=== PATIENT | female | born 1950 | race Two or more races ===

== ENCOUNTER → 2016-10-23 | Outpatient (CLI) | payer MEDICARE, OTHER ==
[~2016-10-23] MED LIST: ACTIGALL300 MG ORAL; COLACE100 MG ORAL; DSS250 MG PO; FAMOTIDINE20 MG PO; FOLIC ACID1 MG PO; LEVOTHYROXINE50 MCG PO; MORPHINE SULFAT15 MG GT; MULTIVITAMINS1 EA14 PO; NYSTATIN100000 UN1 ORAL; TRAMADOL HCL50 MG ORAL; ULTRAM50 MG GT; VITAMIN C500 M1 PO
[2016-10-23 10:07] LABS: MEAN CORPUSCULAR HEMOGLOBIN 29.7 PG (27.0-31.0); MEAN CORPUSCULAR HGB CONC 32.8 G/DL (32.0-36.0); MEAN CORPUSCULAR VOLUME 96 FL (80-99); MEAN PLATELET VOLUME 7.1 FL (6.5-10.1); PLATELET COUNT 232 K/UL (150-450); RED BLOOD COUNT 4.13 M/UL (4.20-5.40); RED CELL DISTRIBUTION WIDTH 12.5 % (11.6-14.8); WHITE BLOOD COUNT 3.2 K/UL (4.8-10.8)
[2016-10-23 10:14] LABS: ALANINE AMINOTRANSFERASE 12 U/L (3-33); ALBUMIN/GLOBULIN RATIO 0.9 (1.0-2.7); AMYLASE 107 U/L (10-110); ANION GAP 14 (5-15); ASPARTATE AMINO TRANSFERASE 29 U/L (5-40); CALCIUM 9.1 mg/dL (8.6-10.2); CARBON DIOXIDE 25 mEQ/L (20-30); CHLORIDE 98 mEQ/L (98-107); CHOLESTEROL 159 mg/dL (< 200); CHOLESTEROL/HDL RATIO 2.2 (3.3-4.4); CREATININE 0.8 mg/dL (0.5-0.9); GLOMERULAR FILTRATION RATE > 60 mL/min (>60); HEMOLYSIS 3; LDL CHOLESTEROL (CALC.) 63 mg/dL (60-99); MAGNESIUM 1.8 mg/dL (1.7-2.5); SODIUM 137 mEQ/L (135-145); TOTAL PROTEIN 7.9 g/dL (6.6-8.7)
[2016-10-26 10:19] LABS: VITAMIN D 25-OH TOTAL 7.5 ng/mL (.)
== END | disposition home or self-care (01) ==
LOC: LAB 09:34
DX: K74.5 Biliary cirrhosis, unspecified (principal); E03.9 Hypothyroidism, unspecified; I10 Essential (primary) hypertension
CPT/HCPCS: 36415; 80053; 80061; 82150; 82306; 82607; 82746; 83690; 83735; 84100; 84436; 84443; 84480; 85025

== ENCOUNTER → 2016-11-28 | Outpatient (CLI) | payer MEDICARE, OTHER ==
[2016-11-28 10:57] VITALS: BP 104/52
--- NOTE | 2016-11-28 11:09 | General Progress Note ---
Assessment/Plan Problem List: (1) Colostomy care ICD Codes: Z43.3 - Colostomy care SNOMED: 635181476 (2) Cirrhosis ICD Codes: K74.60 - Cirrhosis SNOMED: 69057280 (3) Primary biliary cirrhosis ICD Codes: K74.3 - Primary biliary cirrhosis SNOMED: 23820878 (4) Anemia ICD Codes: D64.9 - Anemia SNOMED: 059960884 (5) Constipation ICD Codes: K59.00 - Constipation, unspecified SNOMED: 38452756 (6) Cholelithiasis ICD Codes: K80.20 - Calculus of gallbladder without cholecystitis without obstruction SNOMED: 250367037 (7) Vitamin D deficiency ICD Codes: E55.9 - Vitamin D deficiency SNOMED: 48367644 Assessment/Plan check labs abd us refill ursodiol Subjective ROS Limited/Unobtainable: Yes Allergies: Coded Allergies: No Known Allergies (Unverified , 03/25/15) Subjective no c/o Objective Last 24 Hour Vital Signs Date Time Temp Pulse Resp B/P Pulse Ox O2 Delivery O2 Flow Rate FiO2 11/28/16 10:57 97.5 62 16 104/52 General Appearance: alert EENT: normal ENT inspection Neck: normal alignment Cardiovascular: normal rate Respiratory/Chest: lungs clear Abdomen: normal bowel sounds, non tender, soft Extremities: non-tender TRINA JAMIL Nov 28, 2016 11:09
[2016-11-28 12:22] LABS: BASOPHILS % (AUTO) 1.5 % (0.0-2.0); EOSINOPHILS % (AUTO) 1.4 % (0.0-3.0); LYMPHOCYTES % (AUTO) 20.8 % (20.0-45.0); MEAN CORPUSCULAR HEMOGLOBIN 30.2 PG (27.0-31.0); MEAN CORPUSCULAR HGB CONC 31.9 G/DL (32.0-36.0); MEAN CORPUSCULAR VOLUME 95 FL (80-99); MEAN PLATELET VOLUME 6.9 FL (6.5-10.1); MONOCYTES % (AUTO) 7.6 % (1.0-10.0); NEUTROPHILS % (AUTO) 68.7 % (45.0-75.0); PLATELET COUNT 180 K/UL (150-450); RED BLOOD COUNT 3.82 M/UL (4.20-5.40); RED CELL DISTRIBUTION WIDTH 13.1 % (11.6-14.8); WHITE BLOOD COUNT 3.7 K/UL (4.8-10.8)
[2016-11-28 12:29] LABS: INR 1.4 (0.9-1.1); PROTHROMBIN TIME 14.6 SEC (9.30-11.50)
[2016-11-28 12:34] LABS: ALANINE AMINOTRANSFERASE 21 U/L (3-33); ANION GAP 14 (5-15); ASPARTATE AMINO TRANSFERASE 41 U/L (5-40); CALCIUM 9.1 mg/dL (8.6-10.2); CARBON DIOXIDE 25 mEQ/L (20-30); CHLORIDE 98 mEQ/L (98-107); CREATININE 0.7 mg/dL (0.5-0.9); GLOMERULAR FILTRATION RATE > 60 mL/min (>60); HEMOLYSIS 2; POTASSIUM 5.1 mEQ/L (3.4-4.9); SODIUM 137 mEQ/L (135-145)
[2016-12-01 17:13] LABS: VITAMIN D 25-OH TOTAL 8.9 ng/mL (.)
== END | disposition home or self-care (01) ==
LOC: PAN 10:30
DX: Z43.3 Encounter for attention to colostomy (principal); K74.60 Unspecified cirrhosis of liver; K74.3 Primary biliary cirrhosis; D64.9 Anemia, unspecified; K59.00 Constipation, unspecified; K80.20 Calculus of gallbladder without cholecystitis without obstruction; E55.9 Vitamin D deficiency, unspecified
CPT/HCPCS: 36415; 80053; 82306; 85025; 85610; 85730; G0463; 99211

== ENCOUNTER → 2016-12-04 | Outpatient (CLI) | payer MEDICARE, OTHER ==
--- NOTE | 2016-12-04 15:49 | Diagnostic Imaging Report ---
Indication: PAIN abnormal liver function tests Technique: Bermudez-scale and duplex images of the upper abdomen were obtained Comparison: 03/22/2016 Findings: . Gallbladder again demonstrates gallstones . No wall thickening, nor pericholecystic fluid. Sonographic Larkin's sign is negative. Common bile duct measures 5 mm in diameter. No intrahepatic biliary ductal dilatation. Liver demonstrates patchy increased echogenicity and liver surface nodularity. No focal abnormality. Portal vein and hepatic veins are patent.. Pancreas is unremarkable. Spleen is unremarkable. Left kidney measures 10.2 cm in length. Right kidney measures 10.2 cm length. Both kidneys demonstrate normal echogenicity. There is questionable fullness of bilateral renal collecting systems. There is questionably a small parapelvic cyst in the left lower pole. . Non-aneurysmal abdominal aorta. Impression: Coarsened hepatic echogenicity, consistent with hepatocellular disease. Surface nodularity raises concern for cirrhotic change. Cholelithiasis, also previously described. Negative for dilated ducts Questionable mild bilateral renal collecting system fullness, significance/etiology uncertain Questionable left lower pole parapelvic cyst
== END | disposition home or self-care (01) ==
LOC: ULS 09:22
DX: R94.5 Abnormal results of liver function studies (principal); K80.20 Calculus of gallbladder without cholecystitis without obstruction
CPT/HCPCS: 76700

== ENCOUNTER 2017-11-01 08:50 | Outpatient (CLI) | payer MEDICARE, OTHER ==
[2017-11-01 10:46] LABS: HEMATOCRIT 36.5 % (37.0-47.0); HEMOGLOBIN 10.8 G/DL (12.0-16.0); MEAN CORPUSCULAR VOLUME 81 FL (80-99); PLATELET COUNT 220 K/UL (150-450); RED BLOOD COUNT 4.51 M/UL (4.20-5.40); RED CELL DISTRIBUTION WIDTH 19.7 % (11.6-14.8)
[2017-11-01 11:13] LABS: ALANINE AMINOTRANSFERASE 35 U/L (12-78); ALBUMIN 3.7 G/DL (3.4-5.0); ALBUMIN/GLOBULIN RATIO 0.7 (1.0-2.7); ALKALINE PHOSPHATASE 368 U/L (46-116); ANION GAP 7 mmol/L (5-15); ASPARTATE AMINO TRANSFERASE 47 U/L (15-37); BILIRUBIN,TOTAL 0.7 MG/DL (0.2-1.0); BLOOD UREA NITROGEN 12 mg/dL (7-18); CALCIUM 9.3 MG/DL (8.5-10.1); CARBON DIOXIDE 25 MMOL/L (21-32); CHLORIDE 102 MMOL/L (98-107); CREATININE 0.7 MG/DL (0.55-1.30); POTASSIUM 4.7 MMOL/L (3.5-5.1); SODIUM 134 MMOL/L (136-145)
[2017-11-01 11:30] LABS: % IRON SATURATION 8 % (15-50); IRON 42 ug/dL (50-175); TOTAL IRON BINDING CAPACITY 534 ug/dL (250-450)
== END 2017-11-01 10:50 | disposition home or self-care (01) ==
LOC: LAB 08:50
DX: E03.9 Hypothyroidism, unspecified (principal); R19.7 Diarrhea, unspecified; K74.60 Unspecified cirrhosis of liver
CPT/HCPCS: 36415; 80053; 83036; 83540; 83550; 83735; 84436; 84443; 84480; 85007; 85025

== ENCOUNTER 2018-02-05 17:32 | Outpatient (CLI) | payer MEDICARE, OTHER ==
[2018-02-05 18:12] LABS: BASOPHILS % (AUTO) 0.7 % (0.0-2.0); EOSINOPHILS % (AUTO) 1.9 % (0.0-3.0); HEMATOCRIT 33.5 % (37.0-47.0); HEMOGLOBIN 10.6 G/DL (12.0-16.0); LYMPHOCYTES % (AUTO) 27.6 % (20.0-45.0); MEAN CORPUSCULAR VOLUME 86 FL (80-99); MONOCYTES % (AUTO) 11.2 % (1.0-10.0); NEUTROPHILS % (AUTO) 58.7 % (45.0-75.0); PLATELET COUNT 191 K/UL (150-450); RED CELL DISTRIBUTION WIDTH 15.9 % (11.6-14.8); WHITE BLOOD COUNT 3.8 K/UL (4.8-10.8)
[2018-02-05 18:33] LABS: ALANINE AMINOTRANSFERASE 24 U/L (12-78); ALBUMIN 3.5 G/DL (3.4-5.0); ALBUMIN/GLOBULIN RATIO 0.7 (1.0-2.7); ALKALINE PHOSPHATASE 313 U/L (46-116); ANION GAP 9 mmol/L (5-15); ASPARTATE AMINO TRANSFERASE 42 U/L (15-37); BILIRUBIN,TOTAL 0.6 MG/DL (0.2-1.0); BLOOD UREA NITROGEN 12 mg/dL (7-18); CALCIUM 8.8 MG/DL (8.5-10.1); CARBON DIOXIDE 26 MMOL/L (21-32); CHLORIDE 102 MMOL/L (98-107); CREATININE 0.7 MG/DL (0.55-1.30); POTASSIUM 4.4 MMOL/L (3.5-5.1); SODIUM 137 MMOL/L (136-145)
== END 2018-02-05 19:32 | disposition home or self-care (01) ==
LOC: LAB 17:32
DX: L65.9 Nonscarring hair loss, unspecified (principal)
CPT/HCPCS: 36415; 80053; 85025; 86039

== ENCOUNTER 2018-09-17 10:04 | Outpatient (CLI) | payer MEDICARE, OTHER ==
--- NOTE | 2018-09-17 10:51 | GI Progress Note ---
Assessment/Plan Problems: (1) Primary biliary cirrhosis ICD Codes: K74.3 - Primary biliary cirrhosis SNOMED: 47844533 (2) Anemia ICD Codes: D64.9 - Anemia SNOMED: 303822259 (3) Gastrostomy tube dysfunction ICD Codes: K94.23 - Gastrostomy tube dysfunction SNOMED: 687265319 (4) Constipation ICD Codes: K59.00 - Constipation, unspecified SNOMED: 02779422 (5) Cirrhosis ICD Codes: K74.60 - Cirrhosis SNOMED: 90075399 Status: stable Status Narrative Seen with Dr. Jerome. Assessment/Plan Recommend colonoscopy, however patient refusing Abdominal ultrasound ordered Lab draw ordered Continue ursodiol Return to clinic after the above The patient was seen and examined at bedside and all new and available data was reviewed in the patients chart. I agree with the above findings, impression and plan. (Patient seen earlier today. Signature stamp does not reflect patient encounter time.). - Tera Jerome MD Subjective Gastrointestinal/Abdominal: Reports: no symptoms Subjective Abdominal distention Objective Temperature 98.4 Blood pressure 119/56 Pulse 75 96% room air Weight 83 pounds General Appearance: WD/WN, no apparent distress, alert, thin Cardiovascular: normal rate Respiratory/Chest: normal breath sounds, no respiratory distress Abdominal Exam: normal bowel sounds, non tender, soft Extremities: normal range of motion, non-tender Nico Meyers NP Sep 17, 2018 10:51
[2018-09-17 11:30] VITALS: BP 119/56
== END 2018-09-17 10:34 | disposition home or self-care (01) ==
LOC: PAN 10:04
DX: K74.3 Primary biliary cirrhosis (principal); D64.9 Anemia, unspecified; K94.23 Gastrostomy malfunction; K59.00 Constipation, unspecified
CPT/HCPCS: 99212

== ENCOUNTER 2018-09-23 08:46 | Outpatient (CLI) | payer MEDICARE, OTHER ==
[2018-09-23 10:33] LABS: HEMATOCRIT 37.8 % (37.0-47.0); MEAN CORPUSCULAR VOLUME 96 FL (80-99); PLATELET COUNT 160 K/UL (150-450); RED BLOOD COUNT 3.94 M/UL (4.20-5.40); RED CELL DISTRIBUTION WIDTH 13.4 % (11.6-14.8); WHITE BLOOD COUNT 3.9 K/UL (4.8-10.8)
[2018-09-23 10:45] LABS: ALANINE AMINOTRANSFERASE 32 U/L (12-78); ALBUMIN 3.3 G/DL (3.4-5.0); ALBUMIN/GLOBULIN RATIO 0.8 (1.0-2.7); ALKALINE PHOSPHATASE 298 U/L (46-116); ANION GAP 7 mmol/L (5-15); ASPARTATE AMINO TRANSFERASE 36 U/L (15-37); BILIRUBIN,TOTAL 0.6 MG/DL (0.2-1.0); BLOOD UREA NITROGEN 10 mg/dL (7-18); CALCIUM 9.1 MG/DL (8.5-10.1); CARBON DIOXIDE 26 MMOL/L (21-32); CHLORIDE 106 MMOL/L (98-107); CHOLESTEROL 171 MG/DL (< 200); CREATININE 0.7 MG/DL (0.55-1.30); HDL CHOLESTEROL 81 MG/DL (40-60); POTASSIUM 4.8 MMOL/L (3.5-5.1); SODIUM 139 MMOL/L (136-145); TRIGLYCERIDES 117 MG/DL (30-150)
--- NOTE | 2018-09-23 11:04 | Diagnostic Imaging Report ---
Indication: Abdominal pain. Technique: Multiple plantar grayscale and color Doppler imaging of the abdomen Comparison: 12/04/2016 Findings: Again noted is coarsened liver echotexture with a subtle nodular contour of the liver. No focal hepatic mass lesion is appreciated sonographically. Liver is normal in size with the right lobe measuring approximately 14 cm in length. Imaged hepatic veins are patent. The portal vein is patent with normal direction of flow. There is cholelithiasis and gallbladder sludge. No gallbladder wall thickening or pericholecystic fluid. Sonographic Larkin sign reported as negative. No appreciable intrahepatic biliary ductal dilatation. Common bile duct within normal limits at 5 mm in diameter. Trace ascites is noted adjacent to the left lobe of the liver. The spleen is borderline enlarged measuring 12.2 cm in length. Imaged portions of the pancreatic head unremarkable in appearance. Kidneys are symmetric in size. They demonstrate normal echogenicity. There is no hydronephrosis or sonographically appreciable renal stone. Imaged portions of the abdominal aorta are normal in caliber. They do demonstrate atherosclerotic calcifications however. IMPRESSION: Coarsened hepatic echogenicity and nodular contour of the liver. Findings are concerning for cirrhotic changes. Borderline Splenomegaly. Cholelithiasis. No definite sonographic evidence of an acute cholecystitis. Sonographic Larkin sign reported as negative. Trace ascites adjacent to the left lobe of the liver. Additional findings as above.
== END 2018-09-23 10:46 | disposition home or self-care (01) ==
LOC: ULS 08:46
DX: K74.3 Primary biliary cirrhosis (principal); R16.1 Splenomegaly, not elsewhere classified; K80.20 Calculus of gallbladder without cholecystitis without obstruction; R18.8 Other ascites
CPT/HCPCS: 36415; 76700; 80053; 80061; 82306; 85007; 85025

== ENCOUNTER 2018-10-08 11:29 | Outpatient (CLI) | payer MEDICARE, OTHER ==
[2018-10-08 11:30] VITALS: BP 114/60
--- NOTE | 2018-10-08 16:36 | GI Progress Note ---
Assessment/Plan Problems: (1) Gastrostomy tube dysfunction ICD Codes: K94.23 - Gastrostomy tube dysfunction SNOMED: 693750500 (2) Cirrhosis ICD Codes: K74.60 - Cirrhosis SNOMED: 30028252 (3) Anemia ICD Codes: D64.9 - Anemia SNOMED: 265611372 (4) Vitamin D deficiency ICD Codes: E55.9 - Vitamin D deficiency SNOMED: 66460265 (5) Perforated colon Status: stable Status Narrative Seen with Dr. Jerome. Assessment/Plan EGD/colonoscopy to be scheduled October 16, 2018. - CLD & (Nulytely/Suprep/Movi-Prep) prep instructions given and acknowledged by patient. - NPO @ [place] day prior procedure explained. Will follow with additional recs post procedure. Seen with Dr. Jerome. Thank you for this patient referral. The patient was seen and examined at bedside and all new and available data was reviewed in the patients chart. I agree with the above findings, impression and plan. (Patient seen earlier today. Signature stamp does not reflect patient encounter time.). - Tera Jerome MD Subjective Gastrointestinal/Abdominal: Reports: no symptoms Objective Last 24 Hour Vital Signs Date Time Temp Pulse Resp B/P (MAP) Pulse Ox O2 Delivery O2 Flow Rate FiO2 10/08/18 11:30 97.4 66 16 114/60 98 General Appearance: WD/WN, no apparent distress, alert Cardiovascular: normal rate Respiratory/Chest: normal breath sounds, no respiratory distress Abdominal Exam: normal bowel sounds, non tender, soft Extremities: normal range of motion, non-tender Nico Meyers RV REPAIR TECHNICIAN Oct 08, 2018 16:36
== END 2018-10-08 11:59 | disposition home or self-care (01) ==
LOC: PAN 11:29
DX: K94.23 Gastrostomy malfunction (principal); K74.60 Unspecified cirrhosis of liver; D64.9 Anemia, unspecified; E55.9 Vitamin D deficiency, unspecified; K63.1 Perforation of intestine (nontraumatic)
CPT/HCPCS: G0463

== ENCOUNTER 2018-10-16 08:12 | Day surgery (SDC) | payer MEDICARE, OTHER ==
[~2018-10-16] VITALS: Ht 152.4 cm; Wt 36.3 kg
[2018-10-16] VITALS (11 sets, daily range): BP systolic 114–150; BP diastolic 52–81
--- NOTE | 2018-10-16 06:53 | Anethesia Preoperative Eval ---
Anesthesia Pre-op PMH/ROS General Date of Evaluation: Oct 16, 2018 Time of Evaluation: 06:50 Anesthesiologist: vic ASA Score: ASA 4 Mallampati Score Class I : Soft palate, uvula, fauces, pillars visible Class II: Soft palate, uvula, fauces visible Class III: Soft palate, base of uvula visible Class IV: Only hard plate visible Mallampati Classification: Class II Surgeon: yinka Diagnosis: abdominal pain/colon screening Surgical Procedure: egd/colonoscopy Anesthesia History: none Social History: smoking - nonsmoker Family History: no anesthesia problems Allergies: Coded Allergies: No Known Allergies (Unverified , 03/25/15) Medications: see eMAR Patient NPO?: Yes Past Medical History Gastrointestinal/Genitourinary: Reports: other - g-tube dysfxn, perforated colon, primary biliary cirhosis, abnl lfts, jaundice, cholelithiasis, renal failure Neurologic/Psychiatric: Reports: other - seizure disorder, Endocrine: Reports: hypothyroidism Hematology/Immune: Reports: anemia Anesthesia Pre-op Phys. Exam Physician Exam Last Vital Signs Date Time Temp Pulse Resp B/P (MAP) Pulse Ox O2 Delivery O2 Flow Rate FiO2 10/16/18 08:47 Room Air 10/16/18 08:40 97.8 67 18 150/67 100 Constitutional: NAD Neurologic: CN 2-12 intact Cardiovascular: RRR Respiratory: CTA Gastrointestinal: S/NT/ND Airway Exam Mallampati Score: Class II MO: limited Neck: flexible TMD: 2fb Teeth: missing Anesthesia Pre-op A/P Studies Pre-op Studies: EKG - sinus bradycardia Risk Assessment & Plan Assessment: asa4 Plan: mac Pre-Antibiotics Drug: Yane Laboy MD Oct 16, 2018 06:53
[~2018-10-16 08:12] MED LIST changes: +Atropine Inj 1mg/10ml Syr IV PRN; +DiphenhydrAMINE 50mg/ml Inj IVP PRN; +Midazolam 2mg/2ml Inj IVP PRN; +fentaNYL 100 mcg/2 mL IV PRN
[2018-10-16] MEDS ORDERED: Propofol 200mg/20ml IV ONE (09:00)
[2018-10-16] MEDS ORDERED: Lidocaine 1% MPF 10mg/ml 5ml ONE (09:00)
--- NOTE | 2018-10-16 09:06 | NUR ---
IV WAS INSERTED BY LETITIA HERNANDEZ R.N. AT 0900 AM
--- NOTE | 2018-10-16 09:15 | Pre-Procedure Note/Attestation ---
Pre-Procedure Note/Attestation Complete Prior to Procedure Planned Procedure: not applicable Procedure Narrative: esophagogastroduodenoscopy and colonoscopy Indications for Procedure Pre-Operative Diagnosis: screening colon, GERD Attestation I attest that I discussed the nature of the procedure; its benefits; risks and complications; and alternatives (and the risks and benefits of such alternatives ), prior to the procedure, with the patient (or the patient's legal physician representative). I attest that, if there was a reasonable possibility of needing a blood transfusion, the patient (or the patient's legal physician representative) was given the [facility] standardized written summary, pursuant to the Clem Dequincy Blood Safety Act ([place] Health and Safety Code # 1645, as amended). I attest that I re-evaluated the patient just prior to the surgery and that there has been no change in the patient's H&P, except as documented below: Tera Jerome MD Oct 16, 2018 09:15
--- NOTE | 2018-10-16 09:16 | Short Stay Surgery H&P ---
History of Present Illness History of Present Illness Chief Complaint see recent office note HPI E Pete Bhakta is a 68 year old female who was admitted on for Abdominal Pain, Colon Screening Patient History Allergies: Coded Allergies: No Known Allergies (Unverified , 03/25/15) Medication History Scheduled Levothyroxine Sodium* (Levothyroxine Sodium*), 50 MCG PO DAILY, (Reported) Ursodiol* (Actigall*), 300 MG ORAL TWICE A DAY, (Reported) Physical Exam Vital Signs Last Vital Signs Date Time Temp Pulse Resp B/P (MAP) Pulse Ox O2 Delivery O2 Flow Rate FiO2 10/16/18 08:47 Room Air 10/16/18 08:40 97.8 67 18 150/67 100 Labs Laboratory Tests Test 10/16/18 09:05 White Blood Count Pending Red Blood Count Pending Hemoglobin Pending Hematocrit Pending Mean Corpuscular Volume Pending Mean Corpuscular Hemoglobin Pending Mean Corpuscular Hemoglobin Concent Pending Red Cell Distribution Width Pending Platelet Count Pending Mean Platelet Volume Pending Neutrophils (%) (Auto) Pending Lymphocytes (%) (Auto) Pending Monocytes (%) (Auto) Pending Eosinophils (%) (Auto) Pending Basophils (%) (Auto) Pending Sodium Level Pending Potassium Level Pending Chloride Level Pending Carbon Dioxide Level Pending Blood Urea Nitrogen Pending Creatinine Pending Estimat Glomerular Filtration Rate Pending Glucose Level Pending Calcium Level Pending Plan Attestation Are the patient's medical conditions optimized for surgery? Tera Jerome MD Oct 16, 2018 09:16
[2018-10-16 09:17] LABS: HEMATOCRIT 35.3 % (37.0-47.0); HEMOGLOBIN 11.2 G/DL (12.0-16.0); MEAN CORPUSCULAR VOLUME 94 FL (80-99); PLATELET COUNT 152 K/UL (150-450); RED BLOOD COUNT 3.74 M/UL (4.20-5.40); RED CELL DISTRIBUTION WIDTH 12.5 % (11.6-14.8); WHITE BLOOD COUNT 2.2 K/UL (4.8-10.8)
[2018-10-16 09:44] LABS: ANION GAP 11 mmol/L (5-15); BLOOD UREA NITROGEN 10 mg/dL (7-18); CALCIUM 9.1 MG/DL (8.5-10.1); CARBON DIOXIDE 23 MMOL/L (21-32); CHLORIDE 105 MMOL/L (98-107); CREATININE 0.7 MG/DL (0.55-1.30); POTASSIUM 4.1 MMOL/L (3.5-5.1); SODIUM 139 MMOL/L (136-145)
--- NOTE | 2018-10-16 09:49 | Endoscopy Procedure Note ---
Endoscopy Procedure Note General Indication for Procedure: screening colon, GERD Procedures Performed: EGD, colonoscopy Operative Findings/Diagnosis: gastrtiis, hemorrhoids, diverticulosis Specimen: yes Pt Tolerated Procedure Well: Yes Estimated Blood Loss: none Anesthesia Anesthesiologist: vic Anesthesia: MAC Inserted Devices Implant(s) used?: No Quality Quality of Bowel Preparation: Good Did scope reach the cecum?: Yes Was there any complications?: No GI Core Measures 50 yrs or older w/o bx or poly: No 10yrs. F/U not recommended: Yes If not recommended, why?: Above average risk 10 yrs. F/U needed: Yes 18 years or older w/prev. colo: Yes <3yrs. since last colonoscopy: No Tera Jerome MD Oct 16, 2018 09:49
--- NOTE | 2018-10-16 13:14 | Immediate Post-Op Evaluation ---
Immediate Post-Op Evalulation Immediate Post-Op Evalulation Procedure: egd/colonoscopy/bx Date of Evaluation: Oct 16, 2018 Time of Evaluation: 10:07 IV Fluids: 150ml 0.9ns Blood Products: none Estimated Blood Loss: neglgible Blood Pressure Systolic: 129 Blood Pressure Diastolic: 81 Pulse Rate: 54 Respiratory Rate: 18 O2 Sat by Pulse Oximetry: 100 Temperature (Fahrenheit): 97.8 Pain Score (1-10): 0 Nausea: No Vomiting: No Complications none Patient Status: awake, reacts, patent Hydration Status: adequate Drug: Yane Laboy MD Oct 16, 2018 13:14
--- NOTE | 2018-10-16 13:16 | 48 Hour Post Anesthesia Eval ---
Post Anesthesia Evaluation Procedure: egd/colonoscopy/bx Date of Evaluation: Oct 16, 2018 Time of Evaluation: 10:09 Blood Pressure Systolic: 114 0: 59 Pulse Rate: 52 Respiratory Rate: 18 Temperature (Fahrenheit): 97.8 O2 Sat by Pulse Oximetry: 100 Airway: patent Nausea: No Vomiting: No Pain Intensity: 0 Hydration Status: adequate Cardiopulmonary Status: stable Mental Status/LOC: patient returned to baseline Post-Anesthesia Complications: none Follow-up care needed: N/A Yane Soto MD Oct 16, 2018 13:16
--- NOTE | 2018-10-16 16:48 | Cardiology Report ---
APPROVED REPORT EKG Measurement Heart [id number] Sinus bradycardia Otherwise normal ECG
--- NOTE | 2018-10-16 18:30 | Procedure Note ---
DATE OF PROCEDURE: 10/16/2018 SURGEON: Tera Jerome M.D. PROCEDURE: Upper endoscopy with biopsy and colonoscopy with biopsy. ANESTHESIA: Per Dr. More. INSTRUMENT: Olympus adult flexible upper endoscope and colonoscope. INDICATION: Screening colonoscopy evaluation; history of perforated colon, requiring colostomy in the past; history of ; and need for evaluation for esophageal varices. REASON FOR PROCEDURE: The procedure, risks, benefits, and possible consequences, including hemorrhage, aspiration, perforation and infection, and alternative treatments, were explained to the patient/legal guardian by Dr. Tera Jerome and the patient/legal guardian understood and accepted these risks. PROCEDURE IN DETAIL: After informed consent was obtained and the patient was adequately sedated, Olympus upper endoscope was advanced from the mouth into the second portion of duodenum and retroflexion was performed in the stomach. The patient has atrophic gastritis. There was evidence of stomach was divided into pouches, seems that maybe a paraesophageal hernia, but not severe. No evidence of any esophagitis. No esophageal mass. No gastric mass. Random biopsy from antrum and body was obtained to rule out H. pylori infection. At this time, the upper endoscope was retrieved and the patient was turned over for colonoscopy. First, rectal exam which was normal. Then, the scope was advanced from the rectum into the anastomosis. There was some inflammation ischemic. Biopsy from the anastomosis was obtained. The patient had otherwise normal colonoscopy exam except for diverticulosis. No obvious mass, polyp, or any pathology seen. Retroflexion showed evidence of small nonbleeding internal hemorrhoid. FINDINGS: 1. Atrophic gastritis. 2. Questionable paraesophageal hernia. 3. History of right hemicolectomy with anastomotic ulceration, small. 4. Diverticulosis. 5. Internal hemorrhoids. RECOMMENDATIONS: Follow up biopsy results and treat accordingly. Tera Jerome M.D. DR: MAURICE JOB#: [id number] CC:
== END 2018-10-16 11:40 | disposition home or self-care (01) ==
LOC: GAS 08:12
DX: Z12.11 Encounter for screening for malignant neoplasm of colon (principal); K63.3 Ulcer of intestine; K57.30 Diverticulosis of large intestine without perforation or abscess without bleeding; K64.8 Other hemorrhoids; K63.89 Other specified diseases of intestine; Z90.49 Acquired absence of other specified parts of digestive tract; K29.40 Chronic atrophic gastritis without bleeding; G40.909 Epilepsy, unspecified, not intractable, without status epilepticus; E03.9 Hypothyroidism, unspecified; D64.9 Anemia, unspecified; K74.3 Primary biliary cirrhosis
CPT/HCPCS: 36415; 43239; 45380; 80048; 85007; 85025; 93005; J2704; 94003; 94150

== ENCOUNTER 2018-11-18 13:14 | Outpatient (CLI) | payer MEDICARE, OTHER ==
[~2018-11-18 13:14] MED LIST changes: -Atropine Inj 1mg/10ml Syr IV PRN; -DiphenhydrAMINE 50mg/ml Inj IVP PRN; -Midazolam 2mg/2ml Inj IVP PRN; -fentaNYL 100 mcg/2 mL IV PRN
--- NOTE | 2018-11-18 13:58 | General Progress Note ---
Assessment/Plan Problem List: (1) HP positve gastritis (2) Vitamin D deficiency ICD Codes: E55.9 - Vitamin D deficiency SNOMED: 41525901 (3) Cirrhosis ICD Codes: K74.60 - Cirrhosis SNOMED: 84731708 (4) Anemia ICD Codes: D64.9 - Anemia SNOMED: 386392210 (5) Primary biliary cirrhosis ICD Codes: K74.3 - Primary biliary cirrhosis SNOMED: 33872223 (6) Constipation ICD Codes: K59.00 - Constipation, unspecified SNOMED: 23028248 Assessment/Plan treat for HP cont current meds RTC 3 months for BT Subjective ROS Limited/Unobtainable: Yes Allergies: Coded Allergies: No Known Allergies (Unverified , 03/25/15) Objective General Appearance: alert EENT: normal ENT inspection Neck: supple Cardiovascular: normal rate Respiratory/Chest: decreased breath sounds Abdomen: normal bowel sounds, non tender, soft Extremities: non-tender Tera Jerome MD Nov 18, 2018 13:58
[2018-11-18 15:27] VITALS: BP 106/57
== END 2018-11-18 15:14 | disposition home or self-care (01) ==
LOC: PAN 13:14
DX: K29.70 Gastritis, unspecified, without bleeding (principal); B20 Human immunodeficiency virus [HIV] disease; K74.60 Unspecified cirrhosis of liver; D64.9 Anemia, unspecified; K74.3 Primary biliary cirrhosis; K59.00 Constipation, unspecified

== ENCOUNTER 2019-03-19 12:50 | Outpatient (CLI) | payer MEDICARE, OTHER ==
[2019-03-19] MEDS ORDERED: OMEPRAZOLE20 M2 ORAL (13:20)
--- NOTE | 2019-03-19 13:21 | GI Progress Note ---
Assessment/Plan Problems: (1) Cirrhosis ICD Codes: K74.60 - Cirrhosis SNOMED: 08056328 (2) Primary biliary cirrhosis ICD Codes: K74.3 - Primary biliary cirrhosis SNOMED: 88448093 (3) Anemia ICD Codes: D64.9 - Anemia SNOMED: 779670817 (4) Constipation ICD Codes: K59.00 - Constipation, unspecified SNOMED: 78645005 (5) Colostomy care ICD Codes: Z43.3 - Colostomy care SNOMED: 027438297 (6) Cholelithiasis ICD Codes: K80.20 - Calculus of gallbladder without cholecystitis without obstruction SNOMED: 391376740 (7) Abnormal LFTs ICD Codes: R79.89 - Other specified abnormal findings of blood chemistry SNOMED: 538970548 Status: stable Status Narrative Discussed with Dr. Jerome Assessment/Plan Patient scheduled for repeat breath test to rule out H. pylori infection Unable to perform because the patient is still taking omeprazole Patient instructed to stop omeprazole Return to clinic x2 weeks for blood tests Obtain fibroid scan to evaluate PBC The patient was seen and examined at bedside and all new and available data was reviewed in the patients chart. I agree with the above findings, impression and plan. (Patient seen earlier today. Signature stamp does not reflect patient encounter time.). - Tera Jerome MD Subjective Gastrointestinal/Abdominal: Reports: no symptoms Objective Blood pressure 123/60 Pulse 67 97% room air Weight 86 pounds General Appearance: WD/WN, no apparent distress, alert Cardiovascular: normal rate Respiratory/Chest: normal breath sounds, no respiratory distress Abdominal Exam: normal bowel sounds, non tender, soft Extremities: normal range of motion, non-tender Nico Meyers KAYAKING INSTRUCTOR Mar 19, 2019 13:21
[2019-03-19 13:25] VITALS: BP 123/60
== END 2019-03-19 14:50 | disposition home or self-care (01) ==
LOC: NEU 12:50 → PAN 14:50
DX: K74.60 Unspecified cirrhosis of liver (principal); K74.3 Primary biliary cirrhosis; D64.9 Anemia, unspecified; K59.00 Constipation, unspecified; Z43.3 Encounter for attention to colostomy; K80.20 Calculus of gallbladder without cholecystitis without obstruction; R79.89 Other specified abnormal findings of blood chemistry
CPT/HCPCS: 99212

== ENCOUNTER 2019-05-14 14:57 | Outpatient (CLI) | payer MEDICARE, OTHER ==
[~2019-05-14 14:57] MED LIST changes: +OMEPRAZOLE20 M2 ORAL
--- NOTE | 2019-05-14 15:15 | General Progress Note ---
Assessment/Plan Problem List: (1) Abnormal LFTs ICD Codes: R79.89 - Other specified abnormal findings of blood chemistry SNOMED: 723099370 (2) Primary biliary cirrhosis ICD Codes: K74.3 - Primary biliary cirrhosis SNOMED: 65748989 (3) Anemia ICD Codes: D64.9 - Anemia SNOMED: 692483103 (4) Cholelithiasis ICD Codes: K80.20 - Calculus of gallbladder without cholecystitis without obstruction SNOMED: 754943839 (5) Constipation ICD Codes: K59.00 - Constipation, unspecified SNOMED: 91113045 (6) Vitamin D deficiency ICD Codes: E55.9 - Vitamin D deficiency SNOMED: 29902043 Assessment/Plan: fibroscan reviewed refill meds RTC 3 months labs for today Subjective ROS Limited/Unobtainable: Yes Allergies: Coded Allergies: No Known Allergies (Unverified , 03/25/15) Objective General Appearance: alert EENT: normal ENT inspection Neck: supple Cardiovascular: normal rate Respiratory/Chest: lungs clear Abdomen: normal bowel sounds, non tender, soft Extremities: non-tender Tera Jerome MD May 14, 2019 15:15
[2019-05-14 15:26] VITALS: BP 131/65
== END 2019-05-14 16:57 | disposition home or self-care (01) ==
LOC: PAN 14:57
DX: K74.3 Primary biliary cirrhosis (principal); R79.89 Other specified abnormal findings of blood chemistry; D64.9 Anemia, unspecified; K80.20 Calculus of gallbladder without cholecystitis without obstruction; K59.00 Constipation, unspecified; E55.9 Vitamin D deficiency, unspecified

== ENCOUNTER → 2019-06-24 | Outpatient (CLI) | payer MEDICARE, OTHER ==
--- NOTE | 2019-06-24 11:34 | General Progress Note ---
Assessment/Plan Assessment/Plan: Assessment/Plan Problem List: (1) Abnormal LFTs ICD Codes: R79.89 - Other specified abnormal findings of blood chemistry SNOMED: 293629540 (2) Primary biliary cirrhosis ICD Codes: K74.3 - Primary biliary cirrhosis SNOMED: 32692645 (3) Anemia ICD Codes: D64.9 - Anemia SNOMED: 834162537 (4) Cholelithiasis ICD Codes: K80.20 - Calculus of gallbladder without cholecystitis without obstruction SNOMED: 490803420 (5) Constipation ICD Codes: K59.00 - Constipation, unspecified SNOMED: 92024567 (6) Vitamin D deficiency ICD Codes: E55.9 - Vitamin D deficiency SNOMED: 31360788 Assessment/Plan: fibroscan reviewed refill meds add Ocaliva 5 mg RTC 3 months Subjective ROS Limited/Unobtainable: Yes Allergies: Coded Allergies: No Known Allergies (Unverified , 03/25/15) Objective General Appearance: alert EENT: normal ENT inspection Neck: supple Cardiovascular: normal rate Respiratory/Chest: decreased breath sounds Abdomen: normal bowel sounds, non tender, soft Extremities: non-tender Tera Jerome MD Jun 24, 2019 11:34
[2019-06-24 13:29] VITALS: BP 139/69
== END | disposition home or self-care (01) ==
LOC: PAN 08:39
DX: K59.00 Constipation, unspecified (principal); E55.9 Vitamin D deficiency, unspecified; K80.20 Calculus of gallbladder without cholecystitis without obstruction; D64.9 Anemia, unspecified; K74.3 Primary biliary cirrhosis; R79.89 Other specified abnormal findings of blood chemistry

== ENCOUNTER 2019-09-22 13:47 | Outpatient (CLI) | payer MEDICARE, OTHER ==
--- NOTE | 2019-09-22 14:48 | General Progress Note ---
Assessment/Plan Assessment/Plan: Assessment/Plan Problem List: (1) Abnormal LFTs ICD Codes: R79.89 - Other specified abnormal findings of blood chemistry SNOMED: 932654635 (2) Primary biliary cirrhosis ICD Codes: K74.3 - Primary biliary cirrhosis SNOMED: 62770951 (3) Anemia ICD Codes: D64.9 - Anemia SNOMED: 017247677 (4) Cholelithiasis ICD Codes: K80.20 - Calculus of gallbladder without cholecystitis without obstruction SNOMED: 105308842 (5) Constipation ICD Codes: K59.00 - Constipation, unspecified SNOMED: 28701106 (6) Vitamin D deficiency ICD Codes: E55.9 - Vitamin D deficiency SNOMED: 68943864 Assessment/Plan: refill meds Ocaliva 5 mg still pending RTC 3 months Subjective ROS Limited/Unobtainable: No Allergies: Coded Allergies: No Known Allergies (Unverified , 03/25/15) Objective General Appearance: alert EENT: normal ENT inspection Neck: supple Cardiovascular: normal rate Respiratory/Chest: decreased breath sounds Abdomen: normal bowel sounds, non tender, soft Extremities: non-tender Tera Jerome MD Sep 22, 2019 14:48
[2019-09-22 16:06] VITALS: BP 152/72
== END 2019-09-22 15:47 | disposition home or self-care (01) ==
LOC: PAN 13:47
DX: K74.3 Primary biliary cirrhosis (principal); R79.89 Other specified abnormal findings of blood chemistry; D64.9 Anemia, unspecified; K80.20 Calculus of gallbladder without cholecystitis without obstruction; K59.00 Constipation, unspecified; E55.9 Vitamin D deficiency, unspecified

== ENCOUNTER 2020-02-11 13:46 | Outpatient (CLI) | payer MEDICARE, OTHER ==
[~2020-02-11 13:46] MED LIST changes: +OCALIVA PO
[2020-02-11 15:21] VITALS: BP 124/54
--- NOTE | 2020-02-12 00:30 | Progress Note ---
DATE: 02/11/2020 SUBJECTIVE: Complaining of fatigue, weakness, skin rash. PHYSICAL EXAMINATION: VITAL SIGNS: Temperature 98.8, blood pressure 124/64, pulse 69, respirations 20. HEENT: Normocephalic and atraumatic. NECK: Supple. No evidence of obvious lymphadenopathy. CARDIOVASCULAR: Regular rate and rhythm. Plus S1-S2. LUNGS: Clear to auscultation bilaterally. ABDOMEN: Positive bowel sounds. Soft and nontender. No rebound. No guarding. No peritoneal sign. EXTREMITIES: No cyanosis, no clubbing, no edema. ASSESSMENT AND PLAN: 1. cirrhosis. 2. Anemia. 3. Gallstones. 4. Elevated alkaline phosphatase. 5. Vitamin D deficiency. 6. History of colonic perforation after colonoscopy in a different facility. PLAN: The patient was placed on medication Ocaliva 5 mg daily. She said after few months of taking, she is feeling more fatigued, more tired and she wants to stop. The patient was given the risk of stopping the medication and she still continues to say she wants to stop it. Plan will be to continue Ursodiol 300 mg b.i.d. Check set of labs today including vitamin D levels, CBC, and CMP. The patient to come back to the office after the laboratory results are available. Tera Jerome M.D. DR: Seun JOB#: [id number] CC:
== END 2020-02-11 15:46 | disposition home or self-care (01) ==
LOC: PAN 13:46
DX: R53.83 Other fatigue (principal); R53.1 Weakness; R21 Rash and other nonspecific skin eruption; D64.9 Anemia, unspecified; K80.80 Other cholelithiasis without obstruction; E55.9 Vitamin D deficiency, unspecified; Z79.899 Other long term (current) drug therapy
CPT/HCPCS: 99212